=== PATIENT | female | born 1970 | race Caucasian/White ===

== ENCOUNTER 2016-06-11 11:29 | Emergency (ER) | payer OTHER ==
[~2016-06-11] VITALS: Ht 170.2 cm; Wt 70.0 kg
[~2016-06-11 11:29] MED LIST: CLON0.5T3 PO; NAPR250T3 PO
[2016-06-11] MEDS ORDERED: MULT-506 PO (11:37)
[2016-06-11 11:41] VITALS: PULSE 101; TEMP 37.8; O2SAT 98; Ht 170.2 cm; Wt 70.0 kg
--- NOTE | 2016-06-11 12:29 | DIAGNOSTIC IMAGING REPORT ---
RIGHT FINGER(S) MIN 2 VIEWS ROUTINE CLINICAL HISTORY: Right index finger trauma Right trauma. Pain. COMPARISON: None. DISCUSSION: Soft tissue edema about the distal phalanx of the right second finger. No acute bony abnormality. Cortical margins are intact. IMPRESSION: Soft tissue edema. No acute bony abnormality. Electronically signed by: Juan Carrillo M.D. 06/11/2016 12:27 PM Dictated Date/Time: 06/11/2016 12:26 PM
[2016-06-11 12:32] LABS: BASO % 0.9 %; BASO ABS # 0.11 K/uL (0-0.2); COMPLETE YES; EOS % 3.4 %; HEMATOCRIT 39.4 % (37-47); IG% 0.3 %; LYMPH % 20.8 %; MEAN CELL VOLUME 95.2 fL (80-100); MEAN CORPUSCULAR HEMOGLOBIN 32.9 pg (25-34); MEAN CORPUSCULAR HGB CONC 34.5 g/dl (32-36); MEAN PLATELET VOLUME 9.4 fL (7.4-10.4); MONO % 9.7 %; NEUT % 64.9 %; PLATELET COUNT 427 K/uL (130-400); RED BLOOD COUNT 4.14 M/uL (4.2-5.4); WHITE BLOOD COUNT 12.52 K/uL (4.8-10.8)
[2016-06-11] MEDS ORDERED: XYLOCAINE 1%/SOD BICARB 20 ML VIAL INFIL STA (12:40)
[2016-06-11] MEDS ORDERED: ONDANSETRON INJ 2 MG/ML 2 ML VIAL IV STA (12:40)
[2016-06-11] MEDS ORDERED: BUPIVACAINE 0.5 % 5 MG/1 ML MPF 30ML VIAL INFIL STA (12:40)
[2016-06-11] MEDS ORDERED: MoRPHine SULFATE 4 MG/ML 1 ML CARP\\VIAL IV STA (12:40)
[2016-06-11 12:58] LABS: BUN/CREATININE RATIO 18.8 (10-20); CREATININE 0.7 mg/dl (0.60-1.20); POTASSIUM 4.1 mmol/L (3.5-5.1)
[2016-06-11 13:37] VITALS: BP 127/92
[2016-06-11] MEDS ORDERED: CEPH500C PO (13:58)
--- NOTE | 2016-06-11 13:59 | EMERGENCY ROOM VISIT NOTE ---
ED Visit Note First contact with patient: 11:53 Chief Complaint: "Right index finger pain/tipcrushed". History of Present Illness: This patient is a 46-year-old female who presents to the Emergency Department via ambulance for evaluation of their right index finger laceration. Patient sustained the laceration while attempting to fix her garage door, when her distal right index finger became stuck within the chain above the garage door while she was standing on a ladder. They report a moderate amount of bleeding initially. They admit to any numbness or tingling into the distal extremity. They report no decreased range of motion of the affected digit. Patient rates her current discomfort as a 9/10. Patient's Tetanus status is currently up-to-date. Medications: As noted below Allergies: No known allergies PMH: No pertinent past medical history at this time. 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 ROS: All pertinent positive and negative review of systems are appropriately documented in the History of Present Illness. Physical Exam: VITAL SIGNS - Vital signs and nursing notes were reviewed. GENERAL -46-year-old female appearing her stated age who is in no acute distress. Communicates well with provider and answers questions appropriately. SKIN - There is a 2 cm long laceration noted finger pad of the right second digit. The edges gape apart with traction. There is a fair amount of swelling at the distal right second digit. No foreign bodies appreciated. Upon further examination there are no deep structures including vessel, tendon, or bony structures appreciated. There is no active bleeding noted. MUSCULOSKELETAL - Laceration as described above. +5/5 strength appreciated of the affected digit. Full range of motion of the affected digit. NEUROLOGIC - slight numbness appreciated at the distal right second digit. Otherwise neurologically intact. VASCULAR - Capillary refill was brisk. IMAGING: FINGER(S) MIN 2 VIEWS ROUTINE CLINICAL HISTORY: Right index finger trauma Right trauma. Pain. COMPARISON: None. DISCUSSION: Soft tissue edema about the distal phalanx of the right second finger. No acute bony abnormality. Cortical margins are intact. IMPRESSION: Soft tissue edema. No acute bony abnormality. Electronically signed by: Juan Carrillo M.D. 06/11/2016 12:27 PM Dictated Date/Time: 06/11/2016 12:26 PM ED Course: Patient was seen and evaluated by myself. Risks benefits of performing primary wound closure versus no repair were discussed with the patient who verbalizes understanding. IV access was initiated, as I was severely concern for potential open fracture and need for intravenous antibiotics and pain management. She was given morphine and Zofran for her pain. Laboratory studies reveal a slight leukocytosis. Mild anemia with red blood cell count of 4.12. Platelet count high at 427, this was elevated on previous study as well this number is actually improving. PRP reveal slight elevation of chloride, other was unremarkable. X-ray with results as above. Verbal consent was obtained prior to performing the procedure. 4 cc of 50/50 ratio of 1% buffered lidocaine and 0.5% bupivacaine was used to perform a digital block of the right second digit. The wound was cleansed and prepped in the typical sterile fashion utilizing normal saline and Betadine. The wound was sterilely draped. Once proper anesthetization was established, the wound was further examined and demonstrated no bony involvement. The wound was copiously irrigated with normal saline and Betadine. The wound was closed using 5 simple, 4-0 nylon sutures with the wound edges being well approximated. Patient tolerated the procedure well. No complications were met. The wound was cleansed and dressed with a Bacitracin dressing. A metal splint was applied to the finger for comfort. Patient educated on worrisome symptoms for return visit to the Emergency Department. Patient discharged to home in good condition. She was discharged home on Keflex 500 mg 4 times a day for 7 days. This is for wound prophylaxis. In the evaluation treatment this patient the following differential diagnoses entertained: Finger fracture, dislocation, laceration, among others. Current/Historical Medications Scheduled Cephalexin Monohydrate (Keflex), 500 MG PO QID Clonazepam (Klonopin), 0.5 MG PO HS Multivitamin (Multivitamin), 1 TAB PO DAILY Allergies Coded Allergies: No Known Allergies (Unverified , 06/11/16) Vital Signs Date Time Temp Pulse Resp B/P Pulse Ox O2 Delivery O2 Flow Rate FiO2 06/11/16 13:37 127/92 06/11/16 11:41 37.8 101 20 154/69 98 Room Air Laboratory Results 06/11/16 12:24 Red Blood Count 4.14, Mean Corpuscular Volume 95.2, Mean Corpuscular Hemoglobin 32.9, Mean Corpuscular Hemoglobin Concent 34.5, Mean Platelet Volume 9.4, Neutrophils (%) (Auto) 64.9, Lymphocytes (%) (Auto) 20.8, Monocytes (%) (Auto) 9.7, Eosinophils (%) (Auto) 3.4, Basophils (%) (Auto) 0.9, Neutrophils # (Auto) 8.13, Lymphocytes # (Auto) 2.60, Monocytes # (Auto) 1.21, Eosinophils # (Auto) 0.43, Basophils # (Auto) 0.11 06/11/16 12:24 Test 06/11/16 12:24 White Blood Count 12.52 K/uL (4.8-10.8) Red Blood Count 4.14 M/uL (4.2-5.4) Hemoglobin 13.6 g/dL (12.0-16.0) Hematocrit 39.4 % (37-47) Mean Corpuscular Volume 95.2 fL (80-100) Mean Corpuscular Hemoglobin 32.9 pg (25-34) Mean Corpuscular Hemoglobin Concent 34.5 g/dl (32-36) Platelet Count 427 K/uL (130-400) Mean Platelet Volume 9.4 fL (7.4-10.4) Neutrophils (%) (Auto) 64.9 % Lymphocytes (%) (Auto) 20.8 % Monocytes (%) (Auto) 9.7 % Eosinophils (%) (Auto) 3.4 % Basophils (%) (Auto) 0.9 % Neutrophils # (Auto) 8.13 K/uL (1.4-6.5) Lymphocytes # (Auto) 2.60 K/uL (1.2-3.4) Monocytes # (Auto) 1.21 K/uL (0.11-0.59) Eosinophils # (Auto) 0.43 K/uL (0-0.5) Basophils # (Auto) 0.11 K/uL (0-0.2) RDW Standard Deviation 44.3 fL (36.4-46.3) RDW Coefficient of Variation 12.8 % (11.5-14.5) Immature Granulocyte % (Auto) 0.3 % Immature Granulocyte # (Auto) 0.04 K/uL (0.00-0.02) Anion Gap 7.0 mmol/L (3-11) Est Creatinine Clear Calc Drug Dose 95.6 ml/min Estimated GFR () 118.7 Estimated GFR (Non- 102.5 BUN/Creatinine Ratio 18.8 (10-20) Calcium Level 9.0 mg/dl (8.5-10.1) Medications Administered Medications (Trade) Dose Ordered Sig/Gallo Route Start Time Stop Time Status Last Admin Dose Admin Morphine Sulfate (MoRPHine SULFATE INJ) 4 mg NOW STAT IV 06/11/16 12:40 06/11/16 12:41 DC 06/11/16 12:48 4 MG Ondansetron HCl (Zofran Inj) 4 mg NOW STAT IV 06/11/16 12:40 06/11/16 12:41 DC 06/11/16 12:48 4 MG Departure Information Impression Primary Impression: Laceration of finger Dispostion Home / Self-Care Condition GOOD Prescriptions Cephalexin Monohydrate (Keflex) 500 Mg Cap 500 MG PO QID for 7 Days, #28 CAP Prov: Jd Lao PA-C 06/11/16 Referrals RV. Hoff MD (PCP) Patient Instructions My [facility] Additional Instructions Discharge Instructions: You have received 5 sutures on your right index finger. These sutures are NOT dissolvable and WILL need to be removed by a health care provider in 10-12 days. You can return to the Emergency Department or contact your Primary Care Provider to have the sutures removed. Please follow-up with orthopedics. Please call Dr. Ortiz, by calling his office later today or first thing tomorrow morning. For number as listed in the paperwork. You've been prescribed Keflex 500 mg 4 times daily for the next 7 days. This is to help prevent infection of your finger. Please wear the splint for comfort until the sutures are removed. Proper wound care is essential for adequate wound healing and infection prevention. You can shower and clean the wound with soap and water. Do not scour over the wound, pat dry with a towel. Do not submerse the wound (i.e. bathe or dish wash) until the sutures have been removed. You can use an antibiotic ointment with a dressing over the wound for the next 3-4 days. After this time you may leave the wound dry and open to the air. If crust develops over the wound you can use a Q-tip to apply a 1:1 peroxide:water solution to clean the wound. Look for signs of infection of the wound including: increased pain, swelling, foul discharge, streaking, or increased temperature. If any of these are noticed you should return to the Emergency Department for further assessment and treatment. As with any laceration you may have received nerve damage to the surrounding tissues. This damage may or may not be permanent. You should keep the area covered with sunscreen for the first 6 months to 1 year when at risk for exposure to help minimize scarring. You can also use scar reducing creams or Vitamin E oil to help minimize scarring. For pain control, you can use the following ndpg-nzt-[id number] medicines (if >12 yo): - Regular strength (325mg/tab) Tylenol (acetaminophen) 2 tabs every 4-6 hours as needed. Do not exceed 12 tablets in a 24 hour period. Avoid taking more than 3 grams (3000 mg) of Tylenol per day. This includes any other sources of acetaminophen you may take on a regular basis. - Regular strength (200 mg/tab) Advil (ibuprofen) 1-2 tabs every 4-6 hours as needed. Do not exceed a dose of 3200 mg per day. Return to the emergency department if your symptoms worsen despite treatment course outlined above. Please return to the emergency department with any new/concerning symptoms.
[2017-01-22] MEDS ORDERED: VNTHFA/IN INH (08:04)
== END 2016-06-11 14:00 | disposition home or self-care (01) ==
LOC: EDBD 11:29 → C.EDD 11:30
DX: S61.210A Laceration without foreign body of right index finger without damage to nail, initial encounter (principal); W23.0XXA Caught, crushed, jammed, or pinched between moving objects, initial encounter; Y92.015 Private garage of single-family (private) house as the place of occurrence of the external cause; Z79.899 Other long term (current) drug therapy

== ENCOUNTER → 2017-02-18 | Day surgery (SDC) | payer OTHER ==
[2017-01-22 08:02] VITALS: Ht 169.5 cm; Wt 68.2 kg
[~2017-02-18] VITALS: Ht 169.5 cm; Wt 68.2 kg
[~2017-02-18] MED LIST changes: +500ML BSS 0.3ML EPI 1:1000PF IRRIG ONE; +ACETAMINOPHEN 325 MG TAB PO PRN; +AMVISC PLUS 0.8ML SYRINGE INT OCU ONE; +ATROPINE SULFATE 0.1 MG/ML 5ML SYR IV PRN; +BSS FLUSH ONE; +EpHEDrine SULFATE INJ 50 MG/ML AMP IV PRN; +EpINEphrine INJ 1MG/ML AMP 1 MG/ML AMP ONE; +LACTATED RINGER'S 1000ML 500 ML IV SCH; +LIDOCAINE 3.5% OPH GEL PER APPLICATION CHARGE ONE; +LIDOCAINE HCL 1% MPF 2 ML VIAL ONE; +MIDAZOLAM HCL 1 MG/ML 2ML VIAL ONE; +MULT-506 PO; -NAPR250T3 PO; +OCUCOAT 1 ML SOLN IO ONE; +POVIDONE-IODINE OP SOLN 30 ML BTL ONE; +PROPARACAINE 0.5% OP SOLN PER DROP CHARGE OPR SCH; +TOBRAMYCIN/DEXAMETHASONE OPH OINT PER APPLN CHARGE ONE; +TRYPAN BLUE 0.06% FOR SURGI CENTER ONLY OP ONE; +VNTHFA/IN INH
[2017-02-18] MEDS: PHENYLEPHRINE HCL 2.5% OP SOLN PER DROP CHARGE OPR SCH ×2 (06:37→06:43)
[2017-02-18] MEDS: TROPICAMIDE 1% OP SOLN PER DROP CHARGE OPR SCH ×2 (06:39→06:44)
[2017-02-18] MEDS: CYCLOPENTOLATE HCL 1% OP SOLN PER DROP CHARGE OPR SCH ×2 (06:40→06:45)
[2017-02-18] MEDS: KETOROLAC 0.5% OP SOLN PER DROP CHARGE OPR SCH ×2 (06:41→06:46)
[2017-02-18] MEDS: GATIFLOXACIN OP SOLN PER DROP CHARGE OPR SCH ×2 (06:42→06:52)
--- NOTE | 2017-02-18 07:00 | History & Physical Bridge - SC ---
H&P Re-Evaluation Bridge Note: I have examined the patient, reviewed the History & Physical and in the interval since the performance of the History & Physical I have noted the following changes of clinical significance: No changes noted
[2017-02-18 07:28] VITALS: TEMP 36.6
--- NOTE | 2017-02-18 07:28 | Discharge Instructions-SurgCtr ---
Discharge Instructions Date of Service Feb 18, 2017. Visit Reason for Visit: Right Cataract Discharge Discharge Diagnosis / Problem: cataract Discharge Goals Goal(s): Improve function Activity Recommendations Activity Limitations: per Instructions/Follow-up section Anesthesia . Post Anesthesia Instructions: If you have had General Anesthesia or IV Sedation: * Do not drive today. * Resume driving when surgeon permits. * Do not make important decisions or sign legal documents today. * Call surgeon for: 1. Temperature elevations greater than 101 degrees F. 2. Uncontrollable pain. 3. Excessive bleeding. 4. Persistent nausea and vomiting. 5. Medication intolerance (nausea, vomiting or rash). * For nausea and vomiting use only clear liquids such as: tea, soda, bouillon until nausea subsides, then gradually increase diet as tolerated. * If you have any concerns or questions, call your surgeon's office. If physician is unavailable and it is an emergency, call 911 or go to the nearest emergency room. . Diet Recommendations Home Diet: resume previous diet Procedures Procedures Performed: Right Cataract Phacoemulsification With Intraocular Lens Implant Pending Studies Studies pending at discharge: no Medical Emergencies . Who to Call and When: Medical Emergencies: If at any time you feel your situation is an emergency, please call 911 immediately. . Non-Emergent Contact Non-Emergency issues call your: [employer] . . "Provider Documentation" section prepared by Shayne Nguyen. .
--- NOTE | 2017-02-18 07:29 | [facility] Operative Report ---
Operative Report Date of Service Feb 18, 2017. Operative Report 1. PREOPERATIVE DIAGNOSIS: Cataract of the right eye. 2. POSTOPERATIVE DIAGNOSIS: Same. 3. PROCEDURE: Phacoemulsification with intraocular lens implantation of the right eye. SURGEON: Dr. Shayne Nguyen. ANESTHESIA: Topical Lidocaine gel, 1% Non- Preserved intracameral Lidocaine, and monitored intravenous sedation. INDICATIONS FOR THE PROCEDURE: The patient is a 46 - year-old female with a history of cataract of the right eye causing significant visual impairment. The details of the proposed procedure were explained to the patient who asked appropriate questions and following discussion of all risks, benefits and alternatives agreed to have the procedure done. The patient had a mature white cataract and therefore plans were made preoperatively to use Vision Blue dye. 4. OPERATION AND FINDINGS: DESCRIPTION OF PROCEDURE: After informed consent was obtained, the patient was brought to the Operating Room at the [facility]. The patient was placed in a supine position and then the right eye was prepped and draped in the usual sterile fashion for intraocular surgery. A drop of topical Lidocaine gel was placed in the operative eye. A wire lid speculum was then placed in the fornices. A corneal paracentesis was then created temporally. The Non-Preserved Lidocaine was then instilled into the anterior chamber. Under an air bubble the anterior lens capsule was painted with Vision Blue dye. The excess dye was then irrigated from the eye using balanced salt solution. The anterior chamber was then pressurized with viscoelastic. A 2.0 mm clear corneal incision was then created temporally. A cystotome was inserted into the anterior chamber and used to create a tear in the anterior lens capsule. This capsular tear was then used to create a small flap and the flap was dragged in a counterclockwise direction in order to create a continuous curvilinear capsulorrhexis. Hydrodissection was accomplished with balanced salt solution. Phacoemulsification of the lens nucleus was then performed in a standard [id number] technique. The phaco time was 51 seconds with an average power of 22 %. The remaining cortical material was removed using irrigation aspiration. The capsular bag was then filled with viscoelastic. A Bausch [employer] Lomb MI60L +23.0 diopters lens was then loaded into the injector and injected into the capsular bag. The remaining viscoelastic was removed with the irrigation aspiration handpiece. The wound was hydrated and then checked and found to be watertight. The intraocular pressure was checked and found to be adequate. The wire lid speculum was removed and the patient's face was cleaned and dried. TobraDex ointment was placed in the inferior fornix. The patient was discharged to the Recovery Room having tolerated the procedure well. There were no complications. The patient will be seen tomorrow in the office for follow-up. I attest to the content of the Intraoperative Record and any orders documented therein. Any exceptions are noted below.
[2017-02-18 07:47] VITALS: BP 153/79; PULSE 67; O2SAT 100
--- NOTE | 2017-02-18 07:56 | Anesthesia Progress Nt - [facility] ---
Anesthesia Post Op Note Date & Time Feb 18, 2017 at 07:56 Vital Signs Pain Intensity: 0 Vital Signs Past 12 Hours Date Time Temp Pulse Resp B/P (MAP) Pulse Ox O2 Delivery O2 Flow Rate FiO2 02/18/17 07:47 67 16 153/79 (103) 100 Room Air 02/18/17 07:28 36.6 76 18 134/73 (93) 99 Room Air 02/18/17 06:26 36.7 73 16 152/79 (103) 97 Room Air Notes Mental Status: alert / awake / arousable, participated in evaluation Pt Amnestic to Procedure: Yes Nausea / Vomiting: adequately controlled Pain: adequately controlled Airway Patency, RR, SpO2: stable & adequate BP & HR: stable & adequate Hydration State: stable & adequate Anesthetic Complications: no major complications apparent
== END | disposition home or self-care (01) ==
LOC: X.SURG 06:12
PROVIDERS: ATTEND Ophthalmology
DX: H26.9 Unspecified cataract (principal); J45.909 Unspecified asthma, uncomplicated; F17.200 Nicotine dependence, unspecified, uncomplicated

== ENCOUNTER → 2017-03-18 | Day surgery (SDC) | payer OTHER ==
[2017-03-10 09:35] VITALS: Ht 169.5 cm; Wt 68.2 kg
[~2017-03-18] VITALS: Ht 169.5 cm; Wt 68.2 kg
[~2017-03-18] MED LIST changes: +PROPARACAINE 0.5% OP SOLN PER DROP CHARGE OPL SCH; -PROPARACAINE 0.5% OP SOLN PER DROP CHARGE OPR SCH; -TRYPAN BLUE 0.06% FOR SURGI CENTER ONLY OP ONE
[2017-03-18] MEDS: PHENYLEPHRINE HCL 2.5% OP SOLN PER DROP CHARGE OPL SCH ×2 (09:12→09:17)
[2017-03-18] MEDS: TROPICAMIDE 1% OP SOLN PER DROP CHARGE OPL SCH ×2 (09:13→09:18)
[2017-03-18] MEDS: CYCLOPENTOLATE HCL 1% OP SOLN PER DROP CHARGE OPL SCH ×2 (09:14→09:19)
[2017-03-18] MEDS: KETOROLAC 0.5% OP SOLN PER DROP CHARGE OPL SCH ×2 (09:15→09:20)
[2017-03-18] MEDS: GATIFLOXACIN OP SOLN PER DROP CHARGE OPL SCH ×2 (09:16→09:31)
--- NOTE | 2017-03-18 10:19 | [facility] Operative Report ---
Operative Report Date of Service Mar 18, 2017. Operative Report 1. PREOPERATIVE DIAGNOSIS: Cataract of the left eye. 2. POSTOPERATIVE DIAGNOSIS: Same. 3. PROCEDURE: Phacoemulsification with intraocular lens implantation of the left eye. SURGEON: Dr. Shayne Nguyen. ANESTHESIA: Topical Lidocaine gel, 1% Non- Preserved intracameral Lidocaine, and monitored intravenous sedation. INDICATIONS FOR THE PROCEDURE: The patient is a 46 - year-old female with a history of cataract of the left eye causing significant visual impairment. The details of the proposed procedure were explained to the patient who asked appropriate questions and following discussion of all risks, benefits and alternatives agreed to have the procedure done. 4. OPERATION AND FINDINGS: DESCRIPTION OF PROCEDURE: After informed consent was obtained, the patient was brought to the Operating Room at the [facility]. The patient was placed in a supine position and then the left eye was prepped and draped in the usual sterile fashion for intraocular surgery. A drop of topical Lidocaine gel was placed in the operative eye. A wire lid speculum was then placed in the fornices. A corneal paracentesis was then created temporally. The Non-Preserved Lidocaine was then instilled into the anterior chamber. The anterior chamber was then pressurized with viscoelastic. A 2.0 mm clear corneal incision was then created temporally. A cystotome was inserted into the anterior chamber and used to create a tear in the anterior lens capsule. This capsular tear was then used to create a small flap and the flap was dragged in a counterclockwise direction in order to create a continuous curvilinear capsulorrhexis. Hydrodissection was accomplished with balanced salt solution. Phacoemulsification of the lens nucleus was then performed in a standard [id number]-oac-[id number] technique. The phaco time was 11 seconds with an average power of 9 %. The remaining cortical material was removed using irrigation aspiration. The capsular bag was then filled with viscoelastic. A Bausch & Lomb MI60L +22.0 diopters lens was then loaded into the injector and injected into the capsular bag. The remaining viscoelastic was removed with the irrigation aspiration handpiece. The wound was hydrated and then checked and found to be watertight. The intraocular pressure was checked and found to be adequate. The wire lid speculum was removed and the patient's face was cleaned and dried. TobraDex ointment was placed in the inferior fornix. The patient was discharged to the Recovery Room having tolerated the procedure well. There were no complications. The patient will be seen tomorrow in the office for follow-up. I attest to the content of the Intraoperative Record and any orders documented therein. Any exceptions are noted below.
--- NOTE | 2017-03-18 10:20 | Discharge Instructions-SurgCtr ---
Discharge Instructions Date of Service Mar 18, 2017. Visit Reason for Visit: Cataract Left Eye Discharge Discharge Diagnosis / Problem: cataract Discharge Goals Goal(s): Improve function Activity Recommendations Activity Limitations: per Instructions/Follow-up section Anesthesia . Post Anesthesia Instructions: If you have had General Anesthesia or IV Sedation: * Do not drive today. * Resume driving when surgeon permits. * Do not make important decisions or sign legal documents today. * Call surgeon for: 1. Temperature elevations greater than 101 degrees F. 2. Uncontrollable pain. 3. Excessive bleeding. 4. Persistent nausea and vomiting. 5. Medication intolerance (nausea, vomiting or rash). * For nausea and vomiting use only clear liquids such as: tea, soda, bouillon until nausea subsides, then gradually increase diet as tolerated. * If you have any concerns or questions, call your surgeon's office. If physician is unavailable and it is an emergency, call 911 or go to the nearest emergency room. . Diet Recommendations Home Diet: resume previous diet Procedures Procedures Performed: Left Cataract Phacoemulsification With Intraocular Lens Implant Pending Studies Studies pending at discharge: no Medical Emergencies . Who to Call and When: Medical Emergencies: If at any time you feel your situation is an emergency, please call 911 immediately. . Non-Emergent Contact Non-Emergency issues call your: Forensic [employer]st . . "Provider Documentation" section prepared by Shayne Nguyen. .
[2017-03-18 10:44] VITALS: BP 135/78; PULSE 63; O2SAT 100
--- NOTE | 2017-03-18 11:31 | Anesthesiology Progress Note ---
Anesthesia Post Op Note Date & Time Mar 18, 2017 at 11:31 Vital Signs Pain Intensity: 0 Vital Signs Past 12 Hours Date Time Temp Pulse Resp B/P (MAP) Pulse Ox O2 Delivery O2 Flow Rate FiO2 03/18/17 10:44 63 18 135/78 (97) 100 Room Air 03/18/17 10:22 36.3 69 16 128/65 (86) 95 Room Air 03/18/17 09:02 36.7 64 16 143/79 (100) 98 Room Air Notes Mental Status: alert / awake / arousable, participated in evaluation Nausea / Vomiting: adequately controlled Pain: adequately controlled Airway Patency, RR, SpO2: stable & adequate BP & HR: stable & adequate Hydration State: stable & adequate Anesthetic Complications: no major complications apparent
== END | disposition home or self-care (01) ==
LOC: X.SURG 08:29
PROVIDERS: ATTEND Ophthalmology
DX: H26.9 Unspecified cataract (principal); J45.909 Unspecified asthma, uncomplicated

== ENCOUNTER → 2017-05-15 | Outpatient (CLI) | payer OTHER ==
[~2017-05-15] MED LIST changes: -500ML BSS 0.3ML EPI 1:1000PF IRRIG ONE; -ACETAMINOPHEN 325 MG TAB PO PRN; -AMVISC PLUS 0.8ML SYRINGE INT OCU ONE; -ATROPINE SULFATE 0.1 MG/ML 5ML SYR IV PRN; -BSS FLUSH ONE; -EpHEDrine SULFATE INJ 50 MG/ML AMP IV PRN; -EpINEphrine INJ 1MG/ML AMP 1 MG/ML AMP ONE; -LACTATED RINGER'S 1000ML 500 ML IV SCH; -LIDOCAINE 3.5% OPH GEL PER APPLICATION CHARGE ONE; -LIDOCAINE HCL 1% MPF 2 ML VIAL ONE; -MIDAZOLAM HCL 1 MG/ML 2ML VIAL ONE; -OCUCOAT 1 ML SOLN IO ONE; -POVIDONE-IODINE OP SOLN 30 ML BTL ONE; -PROPARACAINE 0.5% OP SOLN PER DROP CHARGE OPL SCH; -TOBRAMYCIN/DEXAMETHASONE OPH OINT PER APPLN CHARGE ONE
--- NOTE | 2017-05-16 13:54 | MAMMOGRAPHY REPORT ---
BILATERAL DIGITAL SCREENING MAMMOGRAM TOMOSYNTHESIS WITH CAD: 05/15/2017 CLINICAL HISTORY: Routine screening. Patient has no complaints. TECHNIQUE: Breast tomosynthesis in addition to standard 2D mammography was performed. Current study was also evaluated with a Computer Aided Detection (CAD) system. COMPARISON: Comparison is made to exams dated: 08/23/2015 mammogram, 05/03/2013 mammogram, 10/02/2010 [facility], and 10/13/2008. BREAST COMPOSITION: The tissue of both breasts is heterogeneously dense, which may obscure small mas ses. FINDINGS: There is a possible small cluster of calcifications within the left lower inner quadrant, f or which spot magnification views are recommended for further evaluation. The remainder of both breasts are stable compared to prior exams, without suspicious masses, calcific ations, or areas of architectural distortion noted. IMPRESSION: ACR BI-RADS CATEGORY 0: INCOMPLETE EVALUATION: NEED ADDITIONAL IMAGING EVALUATION Left breast calcifications, for which additional imaging evaluation is recommended. The patient will be called to schedule an appointment. Approximately 10% of breast cancers are not detected with mammography. A negative mammographic report should not delay biopsy if a clinically suggestive mass is present. Colleen Matos M.D. /:05/15/2017 16:11:28 Software Tools Engineer: Pili VALDOVINOS(Ector)([place]), [facility] letter sent: Addl Imaging 0 BI-RADS Code: ACR BI-RADS Category 0: Incomplete Evaluation: Need Additional Imaging Evaluation
== END | disposition home or self-care (01) ==
LOC: C.MAMM 07:25
PROVIDERS: ATTEND Internal Medicine
DX: Z12.31 Encounter for screening mammogram for malignant neoplasm of breast (principal)

== ENCOUNTER → 2017-05-29 | Outpatient (CLI) | payer OTHER ==
--- NOTE | 2017-05-30 07:22 | MAMMOGRAPHY REPORT ---
UNILATERAL LEFT DIGITAL DIAGNOSTIC MAMMOGRAM: 05/29/2017 CLINICAL HISTORY: Callback from screening mammogram for left breast calcifications. TECHNIQUE: Spot magnification left CC and ML views were obtained. COMPARISON: Comparison is made to exams dated: 05/15/2017 mammogram, 08/23/2015 mammogram, 05/03/2013 ma mmogram, 10/02/2010 mammogram - [facility], and 10/13/2008. BREAST COMPOSITION: The tissue of the left breast is heterogeneously dense, which may obscure small masses. FINDINGS: Spot magnification views demonstrate a new small 4 mm cluster of calcifications within the left medial posterior breast at approximately 9:00. Some of the calcifications are punctate and roun d and others are coarse heterogeneous. Given that the calcifications are new and given the heterogen eous morphology, the calcifications are indeterminate and stereotactic biopsy is recommended for furt her evaluation. IMPRESSION: ACR BI-RADS CATEGORY 4: SUSPICIOUS New small 4 mm cluster of calcifications within the left 9:00 posterior breast. The calcifications a re indeterminate and stereotactic biopsy is recommended for further evaluation. A phone call was made to the physician's office to confirm faxed results were received. The patient has been verbally notified of the results. She tentatively scheduled the biopsy before leaving the [facility]. Approximately 10% of breast cancers are not detected with mammography. A negative mammographic report should not delay biopsy if a clinically suggestive mass is present. Colleen Matos M.D. /:05/29/2017 08:16:47 Plating Tank Operator Apprentice: Nyla VALDOVINOS(Ector)(Cuate), [facility] letter sent: Abnormal 4/5 BI-RADS Code: ACR BI-RADS Category 4: Suspicious
== END | disposition home or self-care (01) ==
LOC: C.MAMM 07:57
PROVIDERS: ATTEND Internal Medicine
DX: R92.1 Mammographic calcification found on diagnostic imaging of breast (principal)

== ENCOUNTER → 2017-06-04 | Outpatient (CLI) | payer OTHER ==
--- NOTE | 2017-06-04 13:42 | Discharge Instructions ---
Discharge Instructions Procedure Procedure Date: Jun 04, 2017. Reason for visit: Left Calcifications. Discharge Discharge Date: Jun 04, 2017. Discharge Diagnosis: post left breast stereotactic guided biopsy Instructions Activity Recommendations: Additional Limitations (see below) Return to School/Work: no limitations Recommended Home Diet: No Limitations Provider Instructions: ACTIVITY RECOMMENDATIONS: * No lifting, pushing, pulling or exercising the affected side for three days. RETURN TO SCHOOL/WORK: * You may return to work/school after the procedure, but do not perform any strenuous activities for 24 to 48 hours. MEDICATIONS: * Tylenol (two 325 mg) every four to six hours if needed for mild pain (if not allergic to Tylenol). DIET: * Resume previous diet. SPECIAL CARE INSTRUCTIONS: * Keep biopsy site dry for 24 hours. May shower after 24 hours, but do not soak (bathe) incision. * May remove Tegaderm (plastic patch) tomorrow AFTER showering. * Leave the steri-strips on for one week. Allow the steri-strips to fall off by themselves. If not off after one week, you may remove them. You may place a Bandaid crosswise over the strips, if desired. * Apply ice 10 minutes on and 10 minutes off as needed. * Wear a bra at bedtime to sleep more comfortably for 2-3 days. * Your referring physician should have the results after approximately 5 to 7 business days. * Call for unusual bleeding, fever, drainage, etc or if you have any questions call [phone] during normal business hours or after hours call Dr Llamas, . FOLLOW UP VISIT: Follow-up with Referring Physician as scheduled. Allergies Coded Allergies: Cat Dander (Verified Allergy, Intermediate, eyes itch sets her asthma off, 03/10/17) NO KNOWN DRUG ALLERGIES (Verified Allergy, Unknown, ., 03/10/17) Nickel (Verified Allergy, Unknown, RASH, 03/10/17) Carlitos Mann Recommendations: Call your doctor if: * Temperature above 101 degrees * Pain not relieved by pain medicine ordered * There is increased drainage or redness from any incision * You have any unanswered questions or concerns. Your Doctors Instructions noted above were prepared by provider Fany Llamas. Patient Signature Section: Patient Instructions Signature Page Kristi Busby Patient (or Guardian) Signature/Date: I have read and understand the instructions given to me by my caregivers. Caregiver/RN/Doctor Signature/Date: The above-named patient and/or guardian has received patient instructions on this date. + Original Patient Signature Page (only) stays with chart. Please make copy for patient.
--- NOTE | 2017-06-04 15:20 | MAMMOGRAPHY REPORT ---
STEREOTACTIC GUIDED BIOPSY LEFT BREAST: 06/04/2017 CLINICAL HISTORY: Indeterminate cluster of microcalcifications in the lower inner versus 9:00 posteri or left breast. Patient presents for stereotactic biopsy. COMPARISON: Comparison is made to exams dated: 05/29/2017 mammogram, 05/15/2017 mammogram, 08/23/2015 m ammogram, 05/03/2013 mammogram, 10/02/2010 mammogram - [facility], and 10/13/2008. Left PATIENT CONSENT: After explaining the risks, benefits and alternatives of the procedure to the patien t, informed consent was obtained both verbally and in writing. Specific risks include: Bleeding, inf ection, puncture of adjacent structure, pain, nontarget biopsy, sampling error, metal allergy and med ication reaction. PROCEDURE DESCRIPTION: A time-out was performed and the left breast was confirmed as the site of biop sy. The patient was placed prone on the stereotactic biopsy table and the breast was placed in CC fro m below compression. A tomosynthesis tours hostess view demonstrated the calcifications in question and they were targeted utilizing the coordinates obtained by the computer. The skin was prepped with Betadine . 1% Lidocaine with and without epinipherine was administered as local anesthesia. A small skin incis ion was made. Through the incision, the needle was inserted to the depth determined by the computer. 4 samples were obtained using a [employer] - [employer] 9-gauge vacuum-assisted biopsy device. The specimen radi ograph demonstrated several territory account representative microcalcifications, therefore, a metallic marker was plac ed at the biopsy site. There was no immediate complication. Hemostasis was achieved after several min utes of manual compression. The samples were sent to pathology in an appropriately labeled container . Postprocedure CC and ML views of the left breast were obtained. There is a new dumbbell-shaped biop sy marker clip in the medial posterior left breast, not visualized on the postprocedure ML view at th e site of the biopsied clustered calcifications in question. No significant postbiopsy hematoma iden tified. IMPRESSION: STEREOTACTIC GUIDED BIOPSY Status post left breast stereotactic guided biopsy of clustered microcalcifications in the lower inne r versus 9:00 posterior left breast, with biopsy marker clip placed at the site. The patient will receive notification of the biopsy results from her referring physician. Fany Llamas M.D. ay/:06/04/2017 14:29:48 Maintenance Technician 3Rd Shift: Nyla VALDOVINOS(Ector)(M), [facility]
--- NOTE | 2017-06-04 15:23 | MAMMOGRAPHY REPORT ---
UNILATERAL LEFT DIGITAL DIAGNOSTIC MAMMOGRAM: 06/04/2017 CLINICAL HISTORY: Status post stereotactic guided biopsy of a grouping of somewhat coarse heterogeneo us calcifications in the lower inner posterior left breast. Please refer to the report from left breast stereotactic guided biopsy performed at the same time for full detail. IMPRESSION: POST PROCEDURE IMAGING FOR MARKER PLACEMENT Please refer to the report from left breast stereotactic guided biopsy performed at the same time for full detail. Approximately 10% of breast cancers are not detected with mammography. A negative mammographic report should not delay biopsy if a clinically suggestive mass is present. Fany Llamas M.D. ay/:06/04/2017 13:44:04 Block Cleaner: Ramya ASHTON)(Cuate), [facility] BI-RADS Code: Post Procedure Imaging For Marker Placement
== END | disposition home or self-care (01) ==
LOC: C.MAMM 12:36
PROVIDERS: ATTEND Internal Medicine
DX: R92.0 Mammographic microcalcification found on diagnostic imaging of breast (principal); N60.92 Unspecified benign mammary dysplasia of left breast

== ENCOUNTER → 2017-06-24 | Day surgery (SDC) | payer OTHER ==
[2017-06-16 11:28] VITALS: Ht 169.5 cm; Wt 72.7 kg
[~2017-06-24] VITALS: Ht 169.5 cm; Wt 72.7 kg
[~2017-06-24] MED LIST changes: +ATROPINE SULFATE 0.1 MG/ML 5ML SYR IV PRN; +CEFAZOLIN 2000MG IV PUSH 15 ML IV SCH; +DEXAMETHASONE SOD INJ 4 MG/ML VIAL ONE; +EpHEDrine SULFATE INJ 50 MG/ML AMP IV PRN; +EpHEDrine SULFATE INJ 50 MG/ML AMP ONE; +FENTANYL CITRATE INJ 50 MCG/1 ML 2 ML VIAL IV PRN; +FENTANYL CITRATE INJ 50 MCG/1 ML 2 ML VIAL ONE; +KETOROLAC TROMETHAMINE 30 MG/ML VIAL IV. PRN; +LACTATED RINGER'S 1000ML 1,000 ML IV SCH; +LIDOCAINE HCL 2% 2 ML VIAL (20MG/ML) ONE; +LIDOCAINE/EPINEPHRINE 1% 20 ML VIAL ONE; +MIDAZOLAM HCL 1 MG/ML 2ML VIAL ONE; +ONDANSETRON INJ 2 MG/ML 2 ML VIAL IV PRN; +ONDANSETRON INJ 2 MG/ML 2 ML VIAL ONE; +OXYC-57 PO; +OXYCODONE/ACETAMINOPHEN 5-325 TAB PO PRN; +PROPOFOL IV EMULSION 10 MG/ML 20 ML VIAL IV ONE; +SODIUM CHLORIDE 0.9% 1000ML 1,000 ML IV SCH
--- NOTE | 2017-06-24 09:30 | [facility] Post Operative Brief Note ---
Immediate Operative Summary Operative Date Jun 24, 2017. Pre-Operative Diagnosis Left Breast Atypical Ductal Hyperplasia Post-Operative Diagnosis same as preop Procedure(s) Performed Left Breast Lumpectomy With Needle Localization Surgeon Dr. Moreno Instructor Decorating Surgeon(s) none Estimated Blood Loss 5 cc Findings Consistent with Post-Op Diagnosis Specimens A: Left Breast Lumpectomy, 1 long stitch =anterior, 2 short stitch= superior, 2 long stitch=lateral out at 0910 and sent at 0915 Anesthesia Type General Complication(s) none
--- NOTE | 2017-06-24 09:38 | [facility] Operative Report ---
Operative Report Operative Date Jun 24, 2017. Pre-Operative Diagnosis Left Breast Atypical Ductal Hyperplasia Post-Operative Diagnosis same as preop Procedure(s) Performed Left Breast Lumpectomy With Needle Localization Surgeon Dr. Moreno Telecommunications Repairer Surgeon(s) none Estimated Blood Loss 5 cc Specimens A: Left Breast Lumpectomy, 1 long stitch =anterior, 2 short stitch= superior, 2 long stitch=lateral out at 0910 and sent at 0915 Anesthesia Type General Complication(s) none Description of Procedure Prior to coming to the operating room the patient had been taken to the breast manquin where a needle localization was performed. She was then brought to the operating room and placed in supine position with the left arm extended. After successful placement of the laryngeal mask airway the left breast was sterilely prepped and draped in usual fashion. I had cut the guidewire close to the skin prior to prepping the patient. I I then made a curvilinear horizontal incision just above the wire and started creating skin flaps using electrocautery. I then delivered the wire in the wound itself. Using traction countertraction and cautery I came around the lesion and 360. I carried this down to the pectoralis fascia. I left the fascia intact but took all breast tissue anterior to the fascia. I was able to remove the specimen 1 piece. I marked it such that one long suture was anterior, 2 long sutures were lateral and 2 short sutures were superior. We did x-ray the specimen and it did in fact include the intended tissue as well as the previous biopsy marker clip. I controlled any small bleeding points using electrocautery. We then thoroughly irrigated the wound. I closed in multiple layers using 2-0 Vicryl for deep layers 3-0 Vicryl for mid layers and 4-0 Monocryl for skin. Marcaine with epinephrine was injected around the incision for postoperative analgesia. Benzoin and Steri-Strips and gauze were used for dressing. The patient was awaken extubated and transferred to recovery in stable condition. I attest to the content of the Intraoperative Record and any orders documented therein. Any exceptions are noted below.
--- NOTE | 2017-06-24 09:41 | Discharge Instructions-SurgCtr ---
Discharge Instructions Date of Service Jun 24, 2017. Visit Reason for Visit: Left Breast Atypical Ductal Hyperplasia Discharge Discharge Diagnosis / Problem: left breast atypical ductal hyperplasia Discharge Goals Goal(s): Diagnostic testing, Prevent Disease Progression Activity Recommendations Activity Limitations: as noted below Lifting Limitations: gradually increase as tolerated Exercise/Sports Limitations: until after follow-up appointment May Resume Sexual Activity: when tolerated Shower/Bathe: tomorrow Anesthesia . Post Anesthesia Instructions: If you have had General Anesthesia or IV Sedation: * Do not drive today. * Resume driving when surgeon permits. * Do not make important decisions or sign legal documents today. * Call surgeon for: 1. Temperature elevations greater than 101 degrees F. 2. Uncontrollable pain. 3. Excessive bleeding. 4. Persistent nausea and vomiting. 5. Medication intolerance (nausea, vomiting or rash). * For nausea and vomiting use only clear liquids such as: tea, soda, bouillon until nausea subsides, then gradually increase diet as tolerated. * If you have any concerns or questions, call your surgeon's office. If physician is unavailable and it is an emergency, call 911 or go to the nearest emergency room. . Instructions / Follow-Up Instructions / Follow-Up call [phone] for a follow up visit if you don't already have one or if any questions/concerns. Diet Recommendations Home Diet: resume previous diet Procedures Procedures Performed: Left Breast Lumpectomy With Needle Localization Pending Studies Studies pending at discharge: yes List of pending studies: pathology report Medical Emergencies . Who to Call and When: Medical Emergencies: If at any time you feel your situation is an emergency, please call 911 immediately. . Non-Emergent Contact Non-Emergency issues call your: Primary Care Provider, Surgeon Call Non-Emergent contact if: temperature is above 101, wound has increased drainage, wound has increased redness, wound has increased pain . . "Provider Documentation" section prepared by Haroon Moreno. .
--- NOTE | 2017-06-24 09:58 | Anesthesia Progress Nt - [facility] ---
Anesthesia Post Op Note Date & Time Jun 24, 2017 at 09:58 Vital Signs Pain Intensity: 0 Vital Signs Past 12 Hours Date Time Temp Pulse Resp B/P (MAP) Pulse Ox O2 Delivery O2 Flow Rate FiO2 06/24/17 09:36 37.0 99 20 116/74 99 Mask 6 06/24/17 07:37 36.6 76 20 153/81 (105) 97 Room Air Notes Mental Status: alert / awake / arousable, participated in evaluation Pt Amnestic to Procedure: Yes Nausea / Vomiting: adequately controlled Pain: adequately controlled Airway Patency, RR, SpO2: stable & adequate BP & HR: stable & adequate Hydration State: stable & adequate Anesthetic Complications: no major complications apparent
[2017-06-24 10:17] VITALS: TEMP 36.8
[2017-06-24 10:55] VITALS: BP 148/72; PULSE 76; O2SAT 95
--- NOTE | 2017-06-24 14:24 | MAMMOGRAPHY REPORT ---
NEEDLE LOCALIZATION LEFT BREAST: 06/24/2017 CLINICAL HISTORY: 47-year-old woman with recent biopsy-proven atypical ductal hyperplasia in the lowe r inner posterior left breast. She presents for needle and wire localization prior to excisional bio psy. COMPARISON: Comparison is made to exams dated: 05/03/2013 mammogram, 08/23/2015 mammogram, 05/15/2017 ma mmogram, 05/29/2017 mammogram, 06/04/2017 stereotactic biopsy, and 06/04/2017 mammogram - [facility]. PATIENT CONSENT: The risks of the procedure were explained to the patient and informed consent was ob tained. The patient denied eating or drinking anything this morning that would preclude anesthesia. She also denied allergy to lidocaine. A timeout was performed in the left breast was agreed as the site for preoperative localization. PROCEDURE DESCRIPTION: Prior breast imaging exams including a stereotactic guided biopsy performed 06/04/2017, postprocedure mammograms from the same day and spot magnification views dated 05/29/2017 were reviewed. The biopsy marker clip marking the site of the cluster of calcifications in the lower inne r posterior left breast is the intended target for localization. With the patient standing, the left breast was placed in CC from below compression. The skin of the left breast was cleansed with alcoh ol. 1% buffered Lidocaine without epinephrine was administered as local anesthesia. A 5cm Rodriguez II needle and wire combination was inserted into the breast with the aid of an alphanumeric grid. The needle was placed just anterior to the biopsy marker clip given the far posterior location of the bio psy clip within the medial left breast, and inability to include the entire clip within the field-of- view. After the needle and wire were placed in the CC projection, the breast was released from compr ession and repositioned to mediallateral compression. The needle and wire were located 5 mm anterio r to the biopsy marker clip and a few additional finding adjustments were made and ultimately the nee dle was removed leaving the wire in place. The entire procedure including approach and wire length w ere discussed with the operating surgeon prior to surgery, particularly that the clip is located 5 mm posterior to the wire. The patient tolerated the procedure well and there was no immediate complica tion. She was sent to the operating room in satisfactory condition. The specimen radiograph demonstrates the localizing wire and dumbbell-shaped biopsy marker clip, comp atible with successful preoperative localization and subsequent surgical excision. IMPRESSION: NEEDLE LOCALIZATION Status post preoperative wire localization for biopsy-proven atypical ductal hyperplasia in the lower inner posterior left breast, the imaged specimen includes the intended abnormality. The patient will receive the pathology results from her referring physician. Fany Llamas M.D. ay/:06/24/2017 10:52:33 Food Beverage Attendant: Ramya VALDOVINOS(Ector)(M), [facility]
--- NOTE | 2017-06-24 14:24 | MAMMOGRAPHY REPORT ---
SPECIMEN LEFT BREAST: 06/24/2017 CLINICAL HISTORY: 47-year-old woman presents for preoperative wire localization and surgical excision of biopsy-proven atypical ductal hyperplasia in the lower inner posterior left breast. Please refer to the report from left breast mammogram guided needle localization performed at the [facility] time for full detail. IMPRESSION: SPECIMEN Please refer to the report from left breast mammogram guided needle localization performed at the the [facility] for full detail. Fany Llamas M.D. ay/:06/24/2017 08:29:14 Convention Planner: Ramya VALDOVINOS(R)(M), [facility]
== END | disposition home or self-care (01) ==
LOC: X.SURG 07:24
PROVIDERS: ATTEND Surgery
DX: N60.92 Unspecified benign mammary dysplasia of left breast (principal); F41.9 Anxiety disorder, unspecified; M25.50 Pain in unspecified joint; F32.9 Major depressive disorder, single episode, unspecified; F17.200 Nicotine dependence, unspecified, uncomplicated; E03.9 Hypothyroidism, unspecified; Z81.8 Family history of other mental and behavioral disorders; Z82.61 Family history of arthritis; Z85.41 Personal history of malignant neoplasm of cervix uteri; Z80.0 Family history of malignant neoplasm of digestive organs; Z80.3 Family history of malignant neoplasm of breast; Z79.899 Other long term (current) drug therapy

== ENCOUNTER → 2017-07-16 | Outpatient (CLI) | payer OTHER ==
[~2017-07-16] MED LIST changes: -ATROPINE SULFATE 0.1 MG/ML 5ML SYR IV PRN; -CEFAZOLIN 2000MG IV PUSH 15 ML IV SCH; -DEXAMETHASONE SOD INJ 4 MG/ML VIAL ONE; -EpHEDrine SULFATE INJ 50 MG/ML AMP IV PRN; -EpHEDrine SULFATE INJ 50 MG/ML AMP ONE; -FENTANYL CITRATE INJ 50 MCG/1 ML 2 ML VIAL IV PRN; -FENTANYL CITRATE INJ 50 MCG/1 ML 2 ML VIAL ONE; -KETOROLAC TROMETHAMINE 30 MG/ML VIAL IV. PRN; -LACTATED RINGER'S 1000ML 1,000 ML IV SCH; -LIDOCAINE HCL 2% 2 ML VIAL (20MG/ML) ONE; -LIDOCAINE/EPINEPHRINE 1% 20 ML VIAL ONE; -MIDAZOLAM HCL 1 MG/ML 2ML VIAL ONE; -ONDANSETRON INJ 2 MG/ML 2 ML VIAL IV PRN; -ONDANSETRON INJ 2 MG/ML 2 ML VIAL ONE; -OXYCODONE/ACETAMINOPHEN 5-325 TAB PO PRN; -PROPOFOL IV EMULSION 10 MG/ML 20 ML VIAL IV ONE; -SODIUM CHLORIDE 0.9% 1000ML 1,000 ML IV SCH
== END | disposition home or self-care (01) ==
LOC: C.PAPS 13:46
PROVIDERS: ATTEND Obstetrics & Gynecology
DX: Z01.411 Encounter for gynecological examination (general) (routine) with abnormal findings (principal); Z85.41 Personal history of malignant neoplasm of cervix uteri